=== PATIENT | female | born 1965 | race African-American/Black ===

== ENCOUNTER 2017-08-12 07:34 | Inpatient (IN) | payer BC ==
[~2017-08-12] VITALS: Ht 175.3 cm; Wt 101.1 kg
[2017-08-12 08:24] LABS: HEMATOCRIT 42.1 % (36.0-46.0); MCH 33.4 PG (29.0-34.0); MCHC 35.6 G/DL (30.0-36.0); MCV 93.8 FL (83-99); RBC DIS.WIDTH-CV 13.2 % (11.8-14.6); RED BLOOD COUNT 4.49 M/uL (3.80-5.20); WHITE BLOOD COUNT 10.6 K/uL (4.1-10.2)
[2017-08-12 08:35] LABS: ALBUMIN 4.6 g/dL (3.2-4.8)
[2017-08-12 08:36] LABS: CHLORIDE 96 mEq/L (99-109); POTASSIUM 3.1 mEq/L (3.7-5.4); SODIUM 140 mEq/L (136-147)
[2017-08-12 08:38] LABS: GLUCOSE 157 mg/dL (70-99); TOTAL PROTEIN 8.1 g/dL (6.4-8.3)
[2017-08-12 08:40] LABS: TOTAL BILIRUBIN 0.6 mg/dL (0.0-1.0)
[2017-08-12 08:40] LABS: APPEARANCE CLOUDY ((CLEAR)); BILIRUBIN NEGATIVE; BLOOD MODERATE; COLOR YELLOW ((YELLOW)); GLUCOSE (STRIP) NEGATIVE; KETONES 20; LEUKOCYTES NEGATIVE; NITRITE NEGATIVE; PROTEIN (STRIP) 100; SPECIFIC GRAVITY 1.017 (1.000-1.030); UROBILINOGEN 0.2 MG/DL (0.2-1.0)
[2017-08-12 08:41] LABS: ALKALINE PHOSPHATASE 73 IU/L (3-129)
[2017-08-12 08:42] LABS: CREATININE 0.8 mg/dL (0.6-1.3); GFR ESTIMATE (CALCULATED) > 59 mL/min/
[2017-08-12 08:43] LABS: AST (GOT) 16 IU/L (2-34); UREA NITROGEN (BUN) 13 mg/dL (9-23)
[2017-08-12 08:45] LABS: ALT (GPT) 14 IU/L (3-49)
[2017-08-12 08:50] LABS: QUANTITATIVE HCG < 4.0 MIU/ML
[2017-08-12 09:06] LABS: BACTERIA 1+ /HPF; EPITHELIAL CELLS NONE SEEN /HPF; MUCUS NONE SEEN /LPF; RED BLOOD CELLS TNTC /HPF (0-5); UCUL ADDED? YES; WHITE BLOOD CELLS 0-5 /HPF (0-5)
[2017-08-12 09:32] LABS: PLAT.SUFFICIENCY ADEQUATE; PLATELET COUNT 304 K/uL (156-360)
[2017-08-12] MEDS ORDERED: POTASSIUM20 MEQ/11 PO (10:26)
[2017-08-12] MEDS ORDERED: MAGONATE PO (10:27)
[2017-08-12] MEDS ORDERED: VITAMIN D35000 UNIT PO (10:28)
[2017-08-12 16:03] VITALS: BP 135/84
[2017-08-12 16:10] LABS: CHLORIDE 98 MEQ/L (99-109); CREATININE 0.8 MG/DL (0.6-1.3); GFR ESTIMATE (CALCULATED) > 59 mL/min/; POTASSIUM 3.2 MEQ/L (3.7-5.4); SODIUM 140 MEQ/L (136-147); UREA NITROGEN (BUN) 11 mg/dL (9-23)
[2017-08-12 16:23] LABS: GLUCOSE 114 mg/dL (70-99)
[2017-08-12 19:56] VITALS: BP 135/77
[2017-08-12 23:44] VITALS: BP 123/58
[2017-08-13 04:45] VITALS: BP 145/79
[2017-08-13 06:31] LABS: HEMATOCRIT 35.4 % (36.0-46.0); MCH 32.7 PG (29.0-34.0); MCHC 33.6 G/DL (30.0-36.0); MCV 97.3 FL (83-99); PLATELET COUNT 241 K/uL (156-360); RBC DIS.WIDTH-CV 13.3 % (11.8-14.6); RBC DIS.WIDTH-SD 47.9 % (39-53); RED BLOOD COUNT 3.64 M/uL (3.80-5.20); WHITE BLOOD COUNT 9.7 K/uL (4.1-10.2)
[2017-08-13 06:32] LABS: HEMOGLOBIN 11.9 G/DL (11.9-15.5)
[2017-08-13 06:41] LABS: ALBUMIN 3.5 G/DL (3.2-4.8); ALKALINE PHOSPHATASE 51 IU/L (3-129); ALT (GPT) 11 IU/L (3-49); AST (GOT) 20 IU/L (2-34); CHLORIDE 99 MEQ/L (99-109); CREATININE 0.8 MG/DL (0.6-1.3); GFR ESTIMATE (CALCULATED) > 59 mL/min/; GLUCOSE 100 mg/dL (70-99); MAGNESIUM 2.1 mg/dl (1.3-2.7); PHOSPHORUS 3.9 mg/dL (2.5-4.9); POTASSIUM 3.6 MEQ/L (3.7-5.4); SODIUM 141 MEQ/L (136-147); TOTAL BILIRUBIN 0.4 MG/DL (0.0-1.0); TOTAL PROTEIN 5.8 G/DL (6.4-8.3); UREA NITROGEN (BUN) 15 mg/dL (9-23)
[2017-08-13 07:46] VITALS: BP 129/77
[2017-08-13 11:12] VITALS: BP 150/70
[2017-08-13 16:04] VITALS: BP 134/85
[2017-08-13 19:46] VITALS: BP 158/83
[2017-08-13 23:35] VITALS: BP 154/73
[2017-08-14 03:28] VITALS: BP 128/71
[2017-08-14 06:02] LABS: BASOPHIL (%) 0.1 % (0-1); EOSINOPHIL (%) 0.6 % (0-5); EOSINOPHIL COUNT 0.1 K/uL (0-0.3); HEMATOCRIT 33.3 % (36.0-46.0); HEMOGLOBIN 11.2 G/DL (11.9-15.5); IMMATURE GRANULOCYTE (%) 0.4 % (0.0-0.7); LYMPHOCYTE (%) 26.3 % (15-42); LYMPHOCYTE COUNT 2.2 K/uL (1.0-2.8); MCH 32.3 PG (29.0-34.0); MCHC 33.6 G/DL (30.0-36.0); MONOCYTE (%) 8.1 % (3-12); MONOCYTE COUNT 0.7 K/uL (0-0.8); NEUTROPHIL (%) 64.5 % (45-76); NEUTROPHIL COUNT 5.3 K/uL (1.8-6.4); PLATELET COUNT 212 K/uL (156-360); RBC DIS.WIDTH-SD 46.1 % (39-53); RED BLOOD COUNT 3.47 M/uL (3.80-5.20); WHITE BLOOD COUNT 8.3 K/uL (4.1-10.2)
[2017-08-14 06:38] LABS: CHLORIDE 99 MEQ/L (99-109); CREATININE 0.7 MG/DL (0.6-1.3); GFR ESTIMATE (CALCULATED) > 59 mL/min/; GLUCOSE 88 mg/dL (70-99); POTASSIUM 3.3 MEQ/L (3.7-5.4); SODIUM 141 MEQ/L (136-147); UREA NITROGEN (BUN) 9 mg/dL (9-23)
[2017-08-14 08:04] VITALS: BP 134/84
[2017-08-14 11:40] VITALS: BP 162/79
[2017-08-14 19:24] VITALS: BP 158/64
[2017-08-14 23:20] VITALS: BP 134/71
[2017-08-15 04:28] VITALS: BP 149/83
[2017-08-15 06:57] LABS: BASOPHIL (%) 0.2 % (0-1); EOSINOPHIL (%) 1.7 % (0-5); EOSINOPHIL COUNT 0.1 K/uL (0-0.3); HEMOGLOBIN 11.5 G/DL (11.9-15.5); IMMATURE GRANULOCYTE (%) 0.4 % (0.0-0.7); LYMPHOCYTE (%) 23.8 % (15-42); MCH 33.2 PG (29.0-34.0); MCHC 34.8 G/DL (30.0-36.0); MCV 95.4 FL (83-99); MONOCYTE (%) 7.6 % (3-12); MONOCYTE COUNT 0.6 K/uL (0-0.8); NEUTROPHIL (%) 66.3 % (45-76); NEUTROPHIL COUNT 5.4 K/uL (1.8-6.4); PLATELET COUNT 219 K/uL (156-360); RBC DIS.WIDTH-CV 12.7 % (11.8-14.6); RBC DIS.WIDTH-SD 44.1 % (39-53); RED BLOOD COUNT 3.46 M/uL (3.80-5.20); WHITE BLOOD COUNT 8.2 K/uL (4.1-10.2)
[2017-08-15 07:15] LABS: CHLORIDE 102 MEQ/L (99-109); CREATININE 0.7 MG/DL (0.6-1.3); GFR ESTIMATE (CALCULATED) > 59 mL/min/; GLUCOSE 81 mg/dL (70-99); POTASSIUM 3.7 MEQ/L (3.7-5.4); SODIUM 141 MEQ/L (136-147); UREA NITROGEN (BUN) 3 mg/dL (9-23)
[2017-08-15 07:30] VITALS: BP 151/69
[2017-08-15 10:09] VITALS: BP 156/87
[2017-08-15] MEDS ORDERED: NORCO 5/3251 TABLET PO (10:59)
[2017-08-15] MEDS ORDERED: COLACE100 MG PO (10:59)
== END 2017-08-15 15:50 | disposition home or self-care (01) | DRG 355 ==
LOC: EME 07:34 → 3EAST 12:01 → EDOF 12:01 → ENRESERV 14:51 → 3EAST 15:48
PROVIDERS: Physician Assistant; Surgery
PROC: 0DQV4ZZ Repair Mesentery, Percutaneous Endoscopic Approach (ICD-10-PCS; principal; 2017-08-12)
PROC: 0WUF4JZ Supplement Abdominal Wall with Synthetic Substitute, Percutaneous Endoscopic Approach (ICD-10-PCS; principal; 2017-08-12)
DX: K43.0 Incisional hernia with obstruction, without gangrene (principal); F17.210 Nicotine dependence, cigarettes, uncomplicated; N32.81 Overactive bladder; D25.9 Leiomyoma of uterus, unspecified; R31.9 Hematuria, unspecified; E86.0 Dehydration; E87.6 Hypokalemia; E66.9 Obesity, unspecified; Z90.49 Acquired absence of other specified parts of digestive tract; Z68.32 Body mass index [BMI] 32.0-32.9, adult
CPT/HCPCS: 71045; 74177; 80048; 80048 91; 80053; 81003; 83735; 84100; 84702; 85025; 85027; 87086; 88302; 99281; 99285; C1781; J0131; J0330; J1100; J1170; J1650; J1885; J2250; J2405; J2710; J3010; J3480; J7030; J7120; J7643; S0020; S0074